=== PATIENT | male | born 2000 | race Caucasian/White ===

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

== ENCOUNTER 2018-06-29 20:11 | Emergency (ER) | payer OTHER ==
[2018-06-29] MEDS: ADACEL/BOOSTRIX VACCINE (DIPHTH/PERTUSS/ACELL/TETANUS)0.5ML SYR (90715) IM (21:45)
== END 2018-06-29 22:10 | disposition home or self-care (01) ==
LOC: M ED 20:11
DX: S61.216A Laceration without foreign body of right little finger without damage to nail, initial encounter (principal); W22.8XXA Striking against or struck by other objects, initial encounter; Y92.89 Other specified places as the place of occurrence of the external cause; Y99.0 Civilian activity done for income or pay; Z88.0 Allergy status to penicillin; Z88.8 Allergy status to other drugs, medicaments and biological substances; Z91.030 Bee allergy status
CPT/HCPCS: 90715

== ENCOUNTER → 2018-11-11 | Outpatient (REF) | payer BC | LOC: M LAB REF 13:25 | PROVIDERS: ATTEND Physician Assistant | DX: J02.9 Acute pharyngitis, unspecified (principal) ==

== ENCOUNTER → 2020-08-21 | Outpatient (REF) | payer BC | LOC: M LAB REF 15:44 | PROVIDERS: ATTEND Physician Assistant | DX: J02.9 Acute pharyngitis, unspecified (principal) ==

== ENCOUNTER → 2023-04-22 | Outpatient (REF) | payer BC | LOC: M LAB REF 11:36 | PROVIDERS: ATTEND Physician Assistant Medical | DX: J02.9 Acute pharyngitis, unspecified (principal) ==

== ENCOUNTER → 2024-03-11 | Outpatient (CLI) | payer SELFPAY | LOC: M OUTALCOH 13:33 | PROVIDERS: ATTEND Psychiatry & Neurology Psychiatry | DX: Z03.89 Encounter for observation for other suspected diseases and conditions ruled out (principal) ==